=== PATIENT | female | born 1965 | race Caucasian/White ===

== ENCOUNTER 2022-11-19 06:15 | Day surgery (SDC) | payer OTHER ==
[2022-11-18 14:14] VITALS: BMI 22.3
[2022-11-19] MEDS ORDERED: BUPIVACAINE HCL 100 ML ONE (07:22)
[2022-11-19] MEDS ORDERED: PROPOFOL 20 ML ONE ×2 (07:33→08:58)
[2022-11-19] MEDS ORDERED: MIDAZOLAM HCL 2 MG/2 ML SINGLE DOSE VIAL ONE (07:33)
[2022-11-19] MEDS ORDERED: ROPIVACAINE HCL 0.5% 30ML VIAL ONE (08:04)
[2022-11-19] MEDS ORDERED: DEXAMETHASONE SOD PHOSPHATE/PF 10 MG/ML SDV ONE (08:04)
[2022-11-19] MEDS ORDERED: ceFAZolin SODIUM 1 GM VIAL ONE (08:28)
[2022-11-19] MEDS ORDERED: DEXAMETHASONE SOD PHOSPHATE 4 MG/1 ML VIAL ONE (08:30)
[2022-11-19] MEDS ORDERED: ONDANSETRON 4 MG/2 ML VIAL ONE ×2 (08:30→10:06)
[2022-11-19] MEDS ORDERED: KETOROLAC TROMETHAMINE 30 MG/1 ML VIAL ONE (08:33)
[2022-11-19] MEDS ORDERED: oxyCODONE HCL 5 MG TABLET PO PRN (09:37)
[2022-11-19] MEDS ORDERED: ONDANSETRON 4 MG/2 ML VIAL IVPUSH PRN (09:37)
[2022-11-19] MEDS ORDERED: LACTATED RINGERS SOLUTION 1,000 ML IV SCH (09:45)
[2022-11-19] MEDS ORDERED: FENTANYL CITRATE/PF 50 MCG/ML VIAL ONE ×2 (09:51→10:05)
[2022-11-19] MEDS ORDERED: oxyCODONE HCL 5 MG TABLET ONE (10:56)
[2022-11-19 11:37] VITALS: BP 120/74; PULSE 74; RESP 18; TEMP 98.2
== END 2022-11-19 11:40 | disposition home or self-care (01) ==
LOC: FASU 06:15
PROVIDERS: ATTEND Orthopaedic Surgery
PROC: 0LS34ZZ Reposition Right Upper Arm Tendon, Percutaneous Endoscopic Approach (ICD-10-PCS; principal; 2022-11-19 08:42)
PROC: 0RNJ4ZZ Release Right Shoulder Joint, Percutaneous Endoscopic Approach (ICD-10-PCS; 2022-11-19 08:42)
DX: M24.811 Other specific joint derangements of right shoulder, not elsewhere classified (principal)
CPT/HCPCS: 87426; 94760; C1713